=== PATIENT | female | born 1965 | race Hispanic/Latino ===

== ENCOUNTER 2023-06-11 11:30 | Emergency (ER) | payer OTHER, SELFPAY ==
[~2023-06-11] VITALS: Ht 165.1 cm; Wt 99.6 kg
[2023-06-11] MEDS ORDERED: CLONI1TA PO (11:43)
[2023-06-11] MEDS ORDERED: LISI40TA4 PO (11:43)
[2023-06-11] MEDS ORDERED: SERT25TA85 PO (11:43)
[2023-06-11] MEDS ORDERED: IPRATROPIUM 0.5MG/ALBUTEROL 2.5MG INH SOL UD 3ML (DUONEB) NEB ONE (16:40)
[2023-06-11] MEDS ORDERED: predniSONE 20 MG TAB PO ONE (16:40)
[2023-06-11] MEDS ORDERED: PRED20TA PO (17:19)
[2023-06-11] MEDS ORDERED: ALBU2.5V10 INH (17:19)
[2023-06-11 17:34] VITALS: BP 146/77; TEMP 98.1; O2SAT 95
[2023-06-12] MEDS ORDERED: EASY-106 XX (16:23)
[2023-06-12] MEDS ORDERED: VENTAER INH (16:24)
== END 2023-06-11 17:36 | disposition home or self-care (01) ==
LOC: M ED 11:30
DX: J20.5 Acute bronchitis due to respiratory syncytial virus (principal); I10 Essential (primary) hypertension; I25.10 Atherosclerotic heart disease of native coronary artery without angina pectoris; Z88.5 Allergy status to narcotic agent; Z88.8 Allergy status to other drugs, medicaments and biological substances; Z79.899 Other long term (current) drug therapy; Z11.52 Encounter for screening for COVID-19
CPT/HCPCS: 71046; 87486; 87581; 87633; 87798; 93005; 94640; 99284; J7512